=== PATIENT | female | born 1985 | race Caucasian/White ===

== ENCOUNTER 2016-09-30 12:14 | Emergency (ER) ==
--- NOTE | 2016-09-30 12:54 | PROVIDER DOCUMENTATION ---
HPI-General Adult - General Chief Complaint: Female Stated Complaint: 7 WEEKS PREG/BLEEDING Time Seen by Provider: 09/30/16 12:20 Source: patient Allergies/Adverse Reactions: Patient Allergies Allergy/AdvReac Type Severity Reaction Status Date / Time promethazine HCl * Allergy VOMITING Verified 09/30/16 12:28 [From Phenergan] meperidine HCl * AdvReac Unknown Verified 09/30/16 12:28 [From Demerol] - History of Present Illness -Gen Adult Nature of Presenting Problems: Pt. is 31 yof that presents with c/o vaginal bleeding and cramping that began this morning. Pt. reports she is 7 weeks and had an OB appointment yesterday where they did a vaginal exam. Pt. reports she called her OB office and they told her to come to the ED for an US. Pt. is G1, P0. Location of Pain/Injury: reports: abdomen. denies: head, face, mouth, neck, chest, upper extremity, hand(s), back, pelvis, genitalia, lower extremity, feet , upper body, lower body, generalized Pain Radiation: reports: no radiation Quality of Pain: reports: cramping. denies: aching, burning, dull, fullness, indigestion, pressure, sharp, stabbing, tearing, throbbing, tightness Severity: reports: mild. denies: moderate, severe Onset/Duration: reports: abrupt, this morning Timing: reports: still present. denies: improving, gone now, resolved prior to arrival, intermittent, constant, changing over time, getting worse Context/Activities at Onset: reports: none. denies: recent emotional stress, recent physical stress, recent trauma history, possible bad food, cold exposure , out of country travel Modifying Factors: improves with: nothing Associated Symptoms: reports: other (Vaginal bleeding). denies: anxiety, arm pain, back/neck pain, chest pain, constipation, cough, diaphoresis, diarrhea, dizziness, EENT symptoms, fatigue, fever/chills, genitourinary problems, headaches, heartburn, joint pain, loss of appetite, malaise, muscle aches, sinus congestion/drainage, nausea, rash, seizure, shortness of breath, sensory/ motor loss, pain with inspiration, swelling/mass in abdomen, syncope, vomiting, weakness, trouble walking Similar Symptoms Previously?: No Recently seen or treated by another doctor?: Yes Review of Systems - Adult - REVIEW OF SYSTEMS - ADULT Constitutional: reports: see HPI. denies: chills, fever, fatique Eyes: reports: see HPI. denies: discharge, blurred vision, double vision, eye pain Ears, Nose, Mouth & Throat: reports: see HPI. denies: ear discharge, ear pain, nose pain, loose teeth, mouth/dental pain, throat pain Cardiovascular: reports: see HPI. denies: chest pain, heart murmur, orthopnea, palpitations, syncope Respiratory: reports: see HPI. denies: chronic cough, cough, dyspnea on exertion, pleurisy, shortness of breath, wheezing Gastrointestinal: reports: see HPI, abdominal pain. denies: hematemesis, difficulty swallowing, frequent heartburn, nausea, vomiting Genitourinary: reports: see HPI. denies: dysuria, discharge, hematuria, incontinence, urgency Musculoskeletal: reports: see HPI. denies: bone pain, back pain, joint pain, muscle aches, neck pain Integumentary: reports: see HPI. denies: hives, hair loss, itching, rash, skin thickening Neurological: reports: see HPI. denies: ataxia, dizziness/vertigo, headache/ migraines, numbness, paresthesia, seizure, tremors Psychiatric: reports: see HPI. denies: anxiety, depression, emotional problems , insomnia, panic attacks, suicidal thoughts Past History - Adult - PAST MEDICAL HISTORY-ADULT Review of Records: reports: Old Records Reviewed, Nursing Assessment Review, Medications Reviewed, Social history reviewed & non-contributory. Physical Exam-General - PHYSICAL EXAM-ADULT Initial Vital Signs Reviewed: Yes - CONSTITUTIONAL General Appearance: alert, mild distress, thin. negative: anxious, lethargic, slow to respond, obtunded, combative - EYES Eyes: PERRL/EOMI, pink conjunctivae. negative: conjuctival exudate, photophobia , subconjunctival hemorrhage - HEAD, EARS, NOSE, MOUTH & THROAT HENMT: normocephalic/atraumatic, moist mucous membranes. negative: angioedema, frontal tenderness, maxillary tenderness - NECK Neck: non-tender, full range of motion, supple, normal inspection. negative: lymphadenopathy, trachial deviation, thyromegaly - RESPIRATORY Respiratory: lungs clear, normal breath sounds. negative: crackles, rales, rhonchi, stridor, wheezing - CARDIOVASCULAR Cardiovascular: normal peripheral pulses, regular rate, rhythm, no edema, no JVD , no murmur. negative: extra beats, friction rub, irregularly irregular - CHEST (BREASTS) Chest/Breast: deferred - GASTROINTESTINAL (ABDOMEN) Abdominal Exam: normal bowel sounds, non tender, soft. negative: distended, guarding, rigid, rebound, tenderness, hernia, mass - GENITOURINARY Female Genitalia/Pelvic Exam: deferred Rectal Exam: deferred Hemoccult Exam: deferred - LYMPHATIC Lymphatic: no adenopathy. negative: axilla node tender, cervical node tenderness - MUSCULOSKELETAL Back Exam: normal inspection, no CVA tenderness, no vertebral tenderness. negative: decreased range of motion, muscle spasm, vertebral tenderness Extremity: normal range of motion, non-tender, normal gait, normal inspection. negative: deformity, erythema, inflammation, swelling, tenderness Peripheral Pulses: radial (R): 2+, radial (L): 2+ - SKIN Integumentary: normal color, normal turgor, warm/dry. negative: cyanosis, diaphoresis, ecchymosis, erythema, jaundice, mottled, pallor, petechiae, purpura , rash, swelling, tenderness - NEUROLOGIC Neurologic: grossly normal, no motor/sensory deficits. negative: aphasia, facial droop, focal weakness, motor weakness, sensory deficit - PSYCHIATRIC Psych/Mental Status: normal mood/affect, normal thought content, normal thought process, oriented x 3. negative: anxious, paranoid, tearful Progress - PLAN OF CARE/RESULTS Progress/Plan/Lab Results: Discussed results and plan of care with patient. Patient agrees with plan and verbalizes understanding. Vital Signs Temp Pulse Resp BP Pulse Ox 09/30/16 12:25 97.8 F 94 H 18 130/61 100 promethazine HCl * [From Phenergan] Allergy (Verified 09/30/16 12:28) VOMITING meperidine HCl * [From Demerol] Adverse Reaction (Verified 09/30/16 12:28) Unknown Laboratory 09/30/16 09/30/16 12:33 12:33 Ser , Semi-Qnt 2221.0 ABO/Rh A POSITIVE RhIG Candidate? NO Orders Category Date Time Status US OBS COMPLETE < 14 WKS [US] Stat Exams 09/30/16 13:20 Taken QUANT TEST Stat Lab 09/30/16 12:33 Completed RHOGAM WORKUP [BBK] Stat Lab 09/30/16 12:33 Completed Laboratory Tests 09/30/16 09/30/16 12:33 12:33 Ser , Semi-Qnt 2221.0 ABO/Rh A POSITIVE RhIG Candidate? NO - ULTRASOUND (By Radiology) 1 US Study: Transvaginal (Possible tiny intrauterine gestational sac, 6.7mm, no pole, recommend f/u serial hcg and u/s. ([place])) US Results: see note Departure - Departure Time of Disposition Order: 14:49 DIAGNOSIS: Vaginal bleeding before 22 weeks gestation Disposition: HOME 01 Certified Medical Emergency: Emergent Condition: Stable Additional Instructions: Follow up with primary care physician Follow up with OB physician Return to ED on Monday for repeat Quant hcg Return to ED for any concerns or worsening of symptoms ED Follow Up Instructions: You have been treated by a care provider in the Emergency Department. These instructions are being provided to you so you can have an understanding of how to care for yourself upon discharge. Upon discharge from the Emergency Department, you are responsible for making arrangements for follow-up care by a physician of your choice. Take all prescribed medications as directed. Return to the Emergency Department immediately for any new or worsening symptoms. You may call the Physician Referral phone number at [phone] to obtain a list of Physicians who are taking new patients. Attestation - Physician/ Mid-level Attestation Patient care was provided by Mid-level provider (CAVING GUIDE/PA):: Yes Mid-level provider:: Oren Haro Mid-level documentation review:: The Mid-level provider documentation, treatment plan and medical decision making was reviewed by the physician who agrees with all treatment and medical decision making by the [facility]. The physician spent face to face time with patient:: Yes
--- NOTE | 2016-09-30 14:54 | Diag Imaging Result Document ---
PROCEDURE NAME: US OBS COMPLETE < 14 WKS - 09/30/2016 OBSTETRICAL ULTRASOUND, LESS THAN 14 WEEKS: INDICATION: Cramping and bleeding. . FINDINGS: A small rounded fluid collection is noted within the uterus which measures 6.7 mm. This may represent a very early gestational sac. No pole is identified. Follow up HCG values and ultrasound is recommended. The right ovary is not visualized. There is a 1.2 cm cyst in the left ovary. No adnexal masses or free fluid within the cul-de-sac is appreciated. The uterus measures 7.4 x 3.6 x 3.7 cm. IMPRESSION: Possible tiny gestational sac within the uterus measuring 6.7 mm. Serial HCG values and follow-up ultrasound is recommended. [facility]
[2016-09-30 15:55] VITALS: BP 131/72
== END 2016-09-30 15:54 | disposition home or self-care (01) ==
LOC: P.ED 12:14
DX: O46.91 Antepartum hemorrhage, unspecified, first trimester (principal); Z3A.01 Less than 8 weeks gestation of pregnancy; O26.891 Other specified pregnancy related conditions, first trimester; R10.9 Unspecified abdominal pain
CPT/HCPCS: 36415; 76801; 84702; 86900; 86901

== ENCOUNTER 2018-09-29 19:47 | Observation (INO) ==
[2018-09-29] MEDS ORDERED: NS 1,000 ML IV ONE ×2 (20:11→22:59)
[2018-09-29] MEDS ORDERED: NS 1,000 ML ONE (20:12)
[2018-09-29] MEDS ORDERED: ZOFRAN IV ONE ×2 (20:36→22:59)
--- NOTE | 2018-09-29 20:59 | Diag Imaging Result Doc PS360 ---
EXAM: CHEST-PORTABLE 09/29/2018 HISTORY: poss sepsis TECHNIQUE: AP portable chest at 2051 COMMENT: There is no evidence of acute cardiac or pulmonary disease. No previous studies are available for comparison. IMPRESSION: No acute disease. Electronically signed by Dimitris Vann 09/29/2018 8:56 PM
[2018-09-29 21:08] LABS: ALB/GLOB RATIO 1.5; ALBUMIN 5.1 g/dL (3.5-5.0); CALCIUM 10.2 mg/dL (8.8-10.2); CREATININE 1.1 mg/dL (0.5-0.9); POTASSIUM 3.7 mmol/L (3.5-5.1); TOTAL BILIRUBIN 0.85 mg/dL (0.20-1.00); TOTAL PROTEIN 8.4 g/dL (6.3-8.3)
[2018-09-29 21:13] LABS: BASO# 0.02 X1000 (0.0-0.2); BASO% 0.1 % (0.0-0.8); EOS# 0.09 X1000 (0.0-0.7); EOS% 0.5 % (0.0-10.0); HEMATOCRIT 50.9 % (37.0-47.0); HEMOGLOBIN 16.7 g/dL (12.0-16.0); IMM GRAN# 0.05 X1000 (0.0-0.04); IMM GRAN% 0.3 % (0.0-0.5); LYMPH# 0.74 X1000 (1.2-3.4); LYMPH% 3.7 % (20.5-51.1); MCH 26.4 PG (27-31); MCHC 32.8 g/dL (33-37); MCV 80.5 FL (81-99); MONO# 1.02 X1000 (0.11-0.59); MONO% 5.1 % (1.7-9.3); MPV 10.1 FL (7.4-10.4); NEUT# 17.99 X1000 (1.4-6.5); NEUT% 90.3 % (42.2-75.2); PLT 335 X1000 (130-400); RBC 6.32 XMIL (4.2-5.4); RDW 15.2 % (11.5-14.5); WBC 19.91 X1000 (4.8-10.8)
[2018-09-29] MEDS ORDERED: ZOSYN 3.375 GM in NS 50 ML IV ONE (21:44)
[2018-09-29 23:02] LABS: URINE SOURCE CLEAN CATCH
[2018-09-29] MEDS ORDERED: TORADOL IV ONE (23:04)
[2018-09-29 23:05] LABS: BILIRUBIN URINE NEGATIVE (NEGATIVE); BLOOD URINE MODERATE (NEGATIVE); COLOR YELLOW; GLUCOSE URINE NEGATIVE (NEGATIVE); KETONE URINE NEGATIVE (NEGATIVE); LEUKOCYTES URINE NEGATIVE (NEGATIVE); NITRITE URINE NEGATIVE (NEGATIVE); PH URINE 6.5; PROTEIN URINE 50 mg/dL (NEGATIVE); SP GRAVITY URINE > 1.050; TURBIDITY URINE CLEAR (CLEAR); UR EPITHELIAL CELLS <10 /HPF (<10); URINE BACTERIA NEGATIVE /HPF; URINE RBC TNTC /HPF (<10); URINE WBC <10 /HPF (<10); UROBILINOGEN URINE NORMAL (NORMAL)
[2018-09-30] MEDS ORDERED: ATIVAN PO ONE (01:07)
[2018-09-30] MEDS ORDERED: NS 1,000 ML IV ONE (02:16)
[2018-09-30] MEDS ORDERED: ZOFRAN IV PRN (02:17)
[2018-09-30] MEDS ORDERED: TYLENOL PO PRN (02:17)
--- NOTE | 2018-09-30 02:22 | PROVIDER DOCUMENTATION ---
This chart was entered by Trish Pedraza Scribe, acting as scribe for Angelita Mccallum DO. HPI-General Adult - General Chief Complaint: Possible Sepsis-D Stated Complaint: N,V,HIGH WBC Time Seen by Provider: 09/29/18 20:09 Source: patient Allergies/Adverse Reactions: Patient Allergies Allergy/AdvReac Type Severity Reaction Status Date / Time promethazine HCl * Allergy VOMITING Verified 09/30/16 12:28 [From Phenergan] meperidine HCl * AdvReac Unknown Verified 09/30/16 12:28 [From Demerol] - History of Present Illness -Gen Adult Nature of Presenting Problems: pt is a 33 yr old female presenting with complaint of nausea, vomiting and diarrhea onset 1600 today, pt went to urgent care and labs showed 22K white count, urgent care referred her here due to blood count. Location of Pain/Injury: reports: none Pain Radiation: reports: no radiation Quality of Pain: reports: none Severity: reports: moderate Onset/Duration: reports: this afternoon (1600) Timing: reports: still present Context/Activities at Onset: reports: light activity Modifying Factors: improves with: nothing Associated Symptoms: reports: diarrhea, nausea, vomiting. denies: fatigue, fever/chills, weakness Similar Symptoms Previously?: No Recently seen or treated by another doctor?: Yes (seen at urgent care just prior to here.) Review of Systems - Adult - REVIEW OF SYSTEMS - ADULT Constitutional: denies: chills, fever Eyes: denies: discharge, redness Ears, Nose, Mouth & Throat: denies: ear pain, sinus problem, throat pain Cardiovascular: denies: chest pain, palpitations, syncope Respiratory: denies: cough, dyspnea on exertion, shortness of breath Gastrointestinal: reports: diarrhea, nausea, vomiting. denies: abdominal pain Genitourinary: denies: dysuria, frequency, flank pain Musculoskeletal: denies: back pain, muscle aches, muscle weakness, neck pain Integumentary: reports: no symptoms reported Neurological: denies: dizziness/vertigo, headache/migraines Psychiatric: reports: no symptoms reported Endocrine: reports: no symptoms reported Hematologic/Lymphatic: reports: no symptoms reported Allergic/Immunologic: reports: no symptoms reported All Other Systems: Reviewed and Negative Past History - Adult - PAST MEDICAL HISTORY-ADULT Review of Records: reports: Old Records Reviewed, Nursing Assessment Review, Medications Reviewed, Social history reviewed & non-contributory. Major Childhood Illnesses: reports: denies history Cardiovascular: reports: denies history Respiratory: reports: denies history Gastrointestinal: reports: other (familial polyposis) Obstetrical/Gynecological: reports: denies history Genitourinary: reports: denies history Musculoskeletal: reports: denies history Neurological: reports: denies history Endocrine/Immune: reports: denies history Other Conditions: reports: denies history - PRIOR SURGERIES/PROCEDURES Surgical/Procedure History: reports: , bowel surgery (resection) - IMMUNIZATION STATUS Childhood Immunizations: See Nurse Assessment Flu Vaccine: See Nurse Assessment - FAMILY HISTORY Family History: reviewed, not pertinent - SOCIAL HISTORY Living Situation: family Physical Exam-General - PHYSICAL EXAM-ADULT Initial Vital Signs Reviewed: Yes - CONSTITUTIONAL General Appearance: appears well, alert, no apparent distress - EYES Eyes: PERRL/EOMI - HEAD, EARS, NOSE, MOUTH & THROAT HENMT: normocephalic/atraumatic, moist mucous membranes, normal ENT inspection - NECK Neck: non-tender, full range of motion, supple, normal inspection - RESPIRATORY Respiratory: chest non-tender, lungs clear, normal breath sounds, no pleuratic chest pain, no respiratory distress, no accessory muscle use - CARDIOVASCULAR Cardiovascular: normal peripheral pulses, regular rate, rhythm, no edema - GASTROINTESTINAL (ABDOMEN) Abdominal Exam: normal bowel sounds, non tender, soft, other (well healing abdominal scar, no drainage, no erythema) - LYMPHATIC Lymphatic: no adenopathy - MUSCULOSKELETAL Back Exam: normal inspection, no CVA tenderness, no vertebral tenderness Extremity: normal range of motion, non-tender, normal gait, normal inspection - SKIN Integumentary: normal color, normal turgor, warm/dry - NEUROLOGIC Neurologic: grossly normal, no motor/sensory deficits - PSYCHIATRIC Psych/Mental Status: normal mood/affect, normal thought content, normal thought process, oriented x 3 Progress - PLAN OF CARE/RESULTS Progress/Plan/Lab Results: Orders Category Date Time Status CHEST-PORTABLE [RAD] Stat Exams 09/29/18 20:10 Ordered BLOOD CULTURE [BLDCUL] Stat Lab 09/29/18 20:34 Ordered CBC WITH ELECTRONIC DIFF [HEME] Stat Lab 09/29/18 20:34 Ordered COMPREHENSIVE METABOLIC PANEL [CHEM] Stat Lab 09/29/18 20:34 Ordered LACTATE, PLASMA [CHEM] Stat Lab 09/29/18 20:34 Ordered LIPASE [CHEM] Stat Lab 09/29/18 20:34 Ordered 0.9% Sodium Chloride Inj [Ns] 1,000 ml Med 09/29/18 20:12 Discontinued .ROUTE As Directed 0.9% Sodium Chloride Inj [Ns] 1,000 ml Med 09/29/18 20:11 Active IV 999 mls/hr BP was initially low but improved with IV fluids. She remained non-toxic appearing while here. She remained free of abdominal tenderness. She had back pain diffusely but no tenderness on exam. She did develop tingling in her legs but had normal strength, sensation and reflexes. CT a/p showed possible mesenteric panniculitis, but no other acute findings. She has had some ttp over her vertical scar since her Sept surgery. Her lactate was 3.2 initially and 2.8 on repeat. She was empirically given Zosyn IV. No source of infection identified. She was admitted to the hospitalist service for further eval and tx. She denies history of IVDA to suggest epidural abscess or discitis. Result Diagrams: 09/29/18 20:22 09/29/18 20:22 Departure - Departure Date of Disposition Decision: 09/30/18 Time of Disposition Decision: 01:02 DIAGNOSIS: Vomiting and diarrhea, Mesenteric panniculitis Sepsis Qualifiers: Sepsis type: sepsis due to unspecified organism Qualified Code(s): A41.9 - Sepsis, unspecified organism Disposition: ADMITTED INPATIENT 09 Certified Medical Emergency: Emergent Condition: Fair Referrals and Follow-Ups: Raghu Bautista CRNP [Primary Care Provider] - - Critical Care Note This patient required my direct & personal management of CC.: No Attestation - Physician/ RAMY Attestation The physician spent face to face time with patient:: Yes Advanced Practice Provider documentation review:: Supervising physician onsite and consulted in the evaluation and care of this patient. The physician did have a face to face encounter with the patient. This chart was documented by the indicated scribe, (Trish Pedraza, [place]) and accurately reflects the services I performed and decisions made by me, Angelita Mccallum DO, as attested by the provider's signature.
[2018-09-30] MEDS: ZOSYN 3.375 GM in NS 50 ML IV SCH ×4 (05:01→23:09)
--- NOTE | 2018-09-30 05:49 | HISTORY AND PHYSICAL ---
PRIMARY CARE PROVIDER: MIC Xavier. CHIEF COMPLAINT: Nausea, vomiting, diarrhea. HISTORY OF PRESENT ILLNESS: Ms. Cardona is a 33-year-old female with a history of familial polyposis status post resection of her large intestine, who comes in today after having nausea, vomiting and diarrhea. Started this afternoon around 16:00. She denied any fever, chills, fatigue or weakness. She did have cyclic cramping abdominal pain that was worse before vomiting and slightly better afterwards. She was seen at urgent care prior to arrival here. They checked a white blood cell count, found it to be greater than 20,000 and sent her to the emergency room. Laboratory data was completed here which again showed a white blood cell count around 20,000. Her plasma lactate was elevated at 3.2. Fluid resuscitation was started in the emergency room. A CT of her abdomen was obtained which showed mesenteric adenitis or panniculitis. She was given a dose of Zosyn. She will be admitted to the medical floor for further evaluation and treatment. PAST MEDICAL HISTORY: See HPI. PREVIOUS SURGICAL HISTORY: 1. Tonsillectomy. 2. Appendectomy. 3. Colon resection. 4. . FAMILY HISTORY: Positive for familial polyposis. SOCIAL HISTORY: Lives with her . Works in [employer]. Drinks 5 beers 3 times a week. Smokes 1/2 pack of cigarettes to a pack of cigarettes a day. Denies illicit drug use or abuse. ALLERGIES: Meperidine and promethazine. HOME MEDICATIONS: No home medications. REVIEW OF SYSTEMS: Fourteen point review of systems conducted with the patient. She has complaint of tingling or numbness in bilateral lower extremities. She states that it started in her calves and feet. It appears to be somewhat ascending and it is now in her right hand as well. Denies pain in these extremities. States that she does feel that her right hand may be slightly weak. Denies weakness in her lower extremities. Denies headache, visual change , hematemesis, hematochezia, melena. Other pertinent positives are listed above in the HPI. All other systems reviewed and found to be negative. PHYSICAL EXAMINATION: VITAL SIGNS: Temperature 97.9, pulse 98, respirations 18, blood pressure 123/75 , oxygen saturation 98% on room air. GENERAL: Pleasant 33-year-old female lying in the ER stretcher, answers all questions appropriately, is alert and oriented times 3. Mother at bedside very attentive. HEENT: Head is atraumatic, normocephalic. Pupils equal, round, reactive to light. Extraocular eye movement is intact. Sclerae are anicteric. Conjunctiva is pink. Oral mucosa is dry. NECK: Supple. No JVD. No thyromegaly. Trachea is midline. No cervical lymphadenopathy. CARDIAC: S1, S2 appreciated. No murmurs, gallops, or rubs. LUNGS: Clear to auscultation bilaterally. No rhonchi, wheezes, rales. Symmetric rise and fall with respirations. ABDOMEN: Soft, nondistended. Diffusely tender to palpation. Bowel sounds present all 4 quadrants, hyperactive. No pulsatile mass. No organomegaly. EXTREMITIES: No clubbing, cyanosis, or edema. Two-plus pedal pulses bilaterally. MUSCULOSKELETAL: All 4 extremities range of motion within normal limits. 5/5 upper and lower extremity strength which is equal bilaterally. Patient deep tendon reflexes are intact in bilateral lower extremities. NEUROLOGICAL: Alert and oriented times 3. Cranial nerves II through XII grossly intact. Bilateral lower extremities sensory is intact despite the patient having a feeling of numbness. DIAGNOSTIC DATA: CT of the abdomen showed mesenteric adenitis or panniculitis. LABORATORY DATA: WBC is 19.91. Hemoglobin 16.7. Hematocrit 50.9. Platelet count 335. Sodium 141. Potassium 3.7. Chloride 100. Carbon dioxide 23. BUN 16. Creatinine 1.1. Glucose 160. AST 33. ALT 103. Plasma lactate on arrival 3.2, at recheck it was 2.8. Urine : Moderate blood, too numerous to count RBCs. ASSESSMENT AND PLAN: 1. Panniculitis. Zosyn was started in the emergency room. We will continue Zosyn 3.375 IV q.6 hours. Zofran as needed for nausea. 2. Nausea, vomiting, diarrhea, likely secondary to number 1. Cannot exclude a viral syndrome. We will add neuro check q.1 hour as the patient is having ascending numbness somewhat worrisome for Guillain-[place]. Continue to monitor. 3. Familial polyposis status post colon resection. Aware. 4. Tobacco and alcohol use. Smoking cessation as well as alcohol cessation was gone over with the patient. She denies wanting to quit either at this time. 5. Leukocytosis secondary to number 1. 6. Acute kidney injury secondary to fluid volume depletion. Two liters of normal saline was given. We will continue normal saline at 125 mL an hour. Recheck laboratory data in a.m. Further recommendations per patient clinical course. Dictated by MIC Marie for Francisco Song MD This patient was interviewed and examined in concert with MIC. A plan was discussed and is reflected in this dictation. Francisco Song MD cc: MIC Marie MD Eric Crampsey, CRNP [facility]
[2018-09-30 07:09] LABS: EOS# 0.01 X1000 (0.0-0.7); EOS% 0.1 % (0.0-10.0); HEMATOCRIT 39.7 % (37.0-47.0); LYMPH# 0.38 X1000 (1.2-3.4); LYMPH% 4.8 % (20.5-51.1); MCH 26.9 PG (27-31); MCHC 32.7 g/dL (33-37); MONO# 0.25 X1000 (0.11-0.59); MONO% 3.2 % (1.7-9.3); MPV 10.2 FL (7.4-10.4); NEUT# 7.29 X1000 (1.4-6.5); NEUT% 91.9 % (42.2-75.2); PLT 223 X1000 (130-400); RBC 4.84 XMIL (4.2-5.4); RDW 15.2 % (11.5-14.5); WBC 7.93 X1000 (4.8-10.8)
[2018-09-30 07:22] LABS: BUN 13 mg/dL (8-22); CALCIUM 7.8 mg/dL (8.8-10.2); CREATININE 0.7 mg/dL (0.5-0.9); ESTIMATED GFR > 60; GLUCOSE 100 mg/dL (70-104); TCO2 20 mmol/L (25-35)
--- NOTE | 2018-09-30 08:16 | Diag Imaging Result Doc PS360 ---
EXAM: CT ABD/PELVIS W/IV CONT ONLY 09/29/2018 HISTORY: abd pain, nvd. TECHNIQUE: This exam was performed using automated exposure control, adjustment of mA or kV according to patient size, and/or use of iterative reconstruction technique. COMMENT: The current examination is compared with the previous study of 06/26/2013. There is no evidence of acute disease in the visualized portion of the chest. There is a nodular mass arising from the medial lobe of the left adrenal gland measuring almost 2 cm in diameter. This was not present at the time the previous study. The spleen and right adrenal gland are unremarkable. The kidneys, pancreas, and liver are stable in appearance. There are no gallstones. There is some fluid in the small bowel without evidence of mucosal thickening. There is fluid in a pouch in the right lower quadrant as there was at the time the previous study. There has apparently been total colectomy with anastomosis of the small bowel to the rectum due to familial adenomatous polyposis. There is no evidence of significant adenopathy. Some mesenteric nodes are demonstrated particularly in the pelvis and the ileocolic region the largest of which is less than a centimeter in diameter. This was also present at the time the previous examination. Pelvis: There is some infiltration of the mesenteric fat in the anterior midline which was not present at the time the previous study. There is a small fluid collection which is well circumscribed on image 112 measuring 12 mm in diameter. This was not identifiable on the previous study. It appears to have a connection to the neorectum and adjacent small bowel loops and may represent a small fistula. The uterus is somewhat inhomogeneous in density and there may be multiple myometrial masses. This is more apparent than on the previous study. Pelvic ultrasonography may be desirable for further evaluation. The regional skeleton is stable in appearance. IMPRESSION: 1. New left adrenal nodule. This may represent an adenoma but was not present on 06/26/2013. The ultrasound of the kidneys dated 08/08/2018 was reportedly performed for evaluation of an adrenal abnormality, which was not demonstrated at that time. It is possible that this has been previously demonstrated on a examination which is not available for comparison at this time. Clinical correlation is recommended. 2. 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 Edema/inflammation of the pelvic mesenteric fat of uncertain etiology. 3. Possible myometrial masses. Advise further evaluation with ultrasound. Electronically signed by Dimitris Vann 09/30/2018 8:13 AM
[2018-09-30 08:19] LABS: CHLORIDE 108 mmol/L (98-107); POTASSIUM 3.8 mmol/L (3.5-5.1); SODIUM 141 mmol/L (136-145)
[2018-09-30 08:23] LABS: AGAP 13; COSMO 281
[2018-09-30] MEDS ORDERED: 1/2 NS 1,000 ML IV SCH (14:45)
[2018-09-30] MEDS ORDERED: SODIUM CHLORIDE 0.9% INJ SCH (15:00)
[2018-09-30] MEDS ORDERED: PROTONIX IV SCH (15:00)
--- NOTE | 2018-09-30 15:24 | PROGRESS NOTE ---
DATE: 09/30/2018 SUBJECTIVE: As per the patient she is feeling better, she has not been vomiting since yesterday p.m., she wants her diet to be advanced so I will advance the diet to a GI soft diet, low fat. She has a past surgical history of colon resection due to familial polyposis, it looks like multiple members of the family have this condition. She is still having some diarrhea, she received IV fluid in the emergency department. I will continue with IV fluid as well, her kidney function improved and is basically normal, creatinine decreased from 1.1 to 0.7. She has mild elevation of the LFTs and probably this is related to severe dehydration. WBC decreased from 19.9 to 7.9. This could be a combination of infection and/or reactive problem. CRP is 125, within normal limits. OBJECTIVE: Vital Signs: Temperature 97.4 degrees, pulse 103, respiratory rate 16, blood pressure 99/61, oxygen saturation 97 on room air. HEENT: Head normocephalic. No trauma. PERRLA. Neck: Supple. No JVD. No masses. Central trachea. Chest: Clear to auscultation. No wheezing. No rales. Abdomen: Soft. Mild to moderate tenderness to palpation at the level of the lower abdomen. Positive bowel sounds. No signs of peritoneal irritation. No rebound. Extremities: No edema, no clubbing, no cyanosis. Neurological: The patient is alert and oriented x3. Apparently she presented with some numbness sensation at the level of the lower extremities but this is gone. LABORATORY: WBC 7.9, hemoglobin 13, hematocrit 39.7, platelets 223,000, sodium 141, potassium 3.8, chloride 108, bicarbonate 20, BUN 13, creatinine 0.7, glucose 100, calcium 7.8, CRP 125, TSH 124. ASSESSMENT AND PLAN: 1. Panniculitis, Zosyn has been already started in the emergency department and we will continue with the same treatment, on top of that I will continue with IV fluids and I will add pantoprazole to her medications. 2. Nausea and vomiting, resolved. Apparently the last time she vomited was yesterday at 10 p.m., she has been tolerating p.o. just liquids but she is requesting to advance the diet so I will advance the diet to GI soft, low fat. 3. Diarrhea, she is still having some episodes of diarrhea, apparently she had 6 today not large amount but she has been always having loose stools but no watery stools due to her colectomy. 4. 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 5. Familial polyposis status post colon resection aware. 6. Tobacco abuse. This patient has been highly advised against tobacco use. I will continue with daily cessation education. 7. Alcohol use. Apparently this patient drinks multiple times per week, I will advise the patient to stop drinking. 8. Leukocytosis likely secondary to #1, resolved. 9. Acute kidney injury likely due to fluid volume depletion. She received already 3 L of fluid in the emergency department. I will continue with half NS at 75 mL/hour. Kidney function resolved. 10. We did a CT scan yesterday that showed a new left adrenal note but probably that was demonstrated before, this has not been probably evaluated but I will talk to the patient because she needs to follow this problem up with her primary care doctor. 11. 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 Apparently this patient recently had an upper endoscopy done, apparently they found some polyps with some precancer lesions, she is following Dr. Callahan as an outpatient closely. cc: Clemente Leyva MD
[2018-09-30] MEDS: NORCO-5 PO PRN (17:41)
[2018-09-30] MEDS ORDERED: MELATONIN PO SCH (21:00)
[2018-10-01] MEDS: NORCO-5 PO PRN (04:51)
[2018-10-01] MEDS: ZOSYN 3.375 GM in NS 50 ML IV SCH (06:28)
[2018-10-01 06:48] LABS: BASO# 0.02 X1000 (0.0-0.2); BASO% 0.6 % (0.0-0.8); EOS# 0.15 X1000 (0.0-0.7); EOS% 4.5 % (0.0-10.0); HEMATOCRIT 37.9 % (37.0-47.0); HEMOGLOBIN 12.5 g/dL (12.0-16.0); LYMPH% 23.7 % (20.5-51.1); MCH 27.3 PG (27-31); MCV 82.8 FL (81-99); MONO# 0.35 X1000 (0.11-0.59); MONO% 10.4 % (1.7-9.3); MPV 10.1 FL (7.4-10.4); NEUT# 2.05 X1000 (1.4-6.5); NEUT% 60.8 % (42.2-75.2); PLT 194 X1000 (130-400); RBC 4.58 XMIL (4.2-5.4); RDW 15.1 % (11.5-14.5); WBC 3.37 X1000 (4.8-10.8)
[2018-10-01 07:15] LABS: AGAP 11; ALB/GLOB RATIO 1.4; ALBUMIN 3.6 g/dL (3.5-5.0); ALKALINE PHOSPHATASE 72 U/L (32-104); BUN 7 mg/dL (8-22); CALCIUM 8.7 mg/dL (8.8-10.2); CHLORIDE 108 mmol/L (98-107); COSMO 279; CREATININE 0.7 mg/dL (0.5-0.9); ESTIMATED GFR > 60; GLUCOSE 96 mg/dL (70-104); GOT 67 U/L (10-30); GPT 96 U/L (10-36); POTASSIUM 3.8 mmol/L (3.5-5.1); SODIUM 141 mmol/L (136-145); TCO2 22 mmol/L (25-35); TOTAL BILIRUBIN 0.59 mg/dL (0.20-1.00); TOTAL PROTEIN 6.2 g/dL (6.3-8.3)
[2018-10-01 07:25] VITALS: BP 106/58
--- NOTE | 2018-10-02 06:05 | DISCHARGE SUMMARY ---
ADMISSION DATE: 09/29/2018 DISCHARGE DATE: 10/01/2018 DISCHARGE DIAGNOSES: 1. Samuels colitis. 2. Nausea and vomiting, resolved. 3. Diarrhea which is acute on chronic. 4. Numbness sensation at the level of the lower extremities, resolved. 5. Familial polyposis status post colon resection. 6. Tobacco abuse. 7. Alcohol use. 8. Leukocytosis, resolved. 9. Acute kidney injury, resolved. 10. Left adrenal nodule. 11. Possible small fistula adjacent to the ileorectal anastomosis. 12. Possible myometrial masses, per CT scan report. HOSPITAL COURSE: A 33-year-old female with a past medical history of familial polyposis status post resection of her large intestine, came and was admitted on 2017 due to nausea, vomiting and diarrhea. Apparently, this started this same date of admission around 04:00 in the afternoon. She denies any fever, chills, fatigue or weakness. She did have some cyclic cramping abdominal pain that was somewhat worse before vomiting, and slightly better afterwards. She was seen at the urgent care prior to arrival to this hospital. White blood cell was found to be greater than 20,000, and she was sent to the emergency room. Laboratory data was completed here, and again showed a white blood cell count of around 19.9, lactate level elevated at 3.2. She receive fluid resuscitation at the emergency department. CT scan of the abdomen showed mesenteric adenitis or panniculitis. She was given a dose of antibiotics and we continued with the same management. After getting IV fluids and initial treatment, this patient was feeling better. She was not complaining of nausea or vomiting, and she was tolerating a liquid diet. Her white blood cell decreased to 7.9, and the kidney injury resolved completely. The lactate level also was 1.1. She also came in with some elevated LFTs. AST 133, ALT 103, alkaline phosphatase 119, and they seem to be a little bit better today. Like I said, she is not complaining of any symptoms today. Vital signs are stable as well as the laboratory. She has been asking since yesterday afternoon to go home because she was feeling better, but given her current presentation we have decided to at least keep her during the night with IV fluids because she was still having episodes of diarrhea that is actually more liquid than normal. Also, we advanced the diet to see if she is able to tolerate that. I re-evaluated this patient today again, and she was feeling better. She was tolerating p.o. She was not having pain, and her bowel movements were better. Also, we discussed about her CT scan results about the adrenal node which she states that is not new, and she has been taking care of this as an outpatient as well. I talked to her about the small fistula adjacent to the ileorectal anastomosis per CT scan. She will follow that up with Dr. Callahan which is her certified professional controller. For her possible myometrial masses, she will get her [employer] to evaluate that with an ultrasound. Her mother is at the bedside, and they seem to understand all these instructions. She will be discharged with antibiotics. As per the patient, every time she takes antibiotics, she has a really bad yeast infection so also we will prescribe some Diflucan to prevent that. At the moment of discharge, this patient was in stable medical condition tolerating p.o. and ambulating. Her diarrhea was basically back to her normal chronic bowel movements. She is not complaining of chest pain, shortness of breath only mild discomfort to palpation at the level of the right lower quadrant. OBJECTIVE: Vital Signs: Temperature 98.5 degrees, pulse 52, respiratory rate 14, blood pressure 106/58, oxygen saturation 99 on room air. HEENT: Head normocephalic. No trauma. PERRLA. Neck: Supple. No JVD. No masses. Central trachea. Chest: Clear to auscultation. No wheezing. No rales. Abdomen: Soft. Mild tenderness to palpation at the level of the right lower quadrant. She does have some abdominal scars from previous surgeries. Positive bowel sounds. Extremities: No edema. No clubbing. No cyanosis. Neurological: The patient is alert and oriented x3. No focal deficits. LABORATORY: WBC 3.3, hemoglobin 12.5, hematocrit 37.9, and platelets 194,000. Sodium 141, potassium 3.8, chloride 108, bicarbonate 22, BUN 7, creatinine 0.7, glucose 96, calcium 8.7 AST 67, ALT 96, alkaline phosphatase 72 and albumin 3.6. ASSESSMENT AND PLAN: It looks like this patient has been drinking at least 3 times a day and also smoking. This patient has been highly advised against alcohol and tobacco use. DISCHARGE MEDICATIONS: 1. Omeprazole 20 mg p.o. daily. 2. Diflucan 150 p.o. once at the beginning of the antibiotics, and can be repeated if a yeast infection is present. 3. Ciprofloxacin 500 mg p.o. q.12 hours. 4. Augmentin 875 mg p.o. q.12 hours. TIME SPENT: Time discharging this patient and discussing with the family about her medical condition, around 40 minutes. cc: Clemente Leyva MD MTDD
== END 2018-10-01 10:31 | disposition home or self-care (01) ==
LOC: ED 19:47 → INTOOBSV 19:48 → SUATTDRO 09-30 04:39 → EDIPHOLD 09-30 04:39 → 4N 09-30 15:51
PROVIDERS: ATTEND Internal Medicine
CPT/HCPCS: 71010; 71045; 74177; 80048; 80053; 81001; 83605; 83690; 84443; 85025; 86140; 87040; 87045; 87046; 87177; 87205; 87324; 87449; 88313; 89055; 96361; 96365; 96366; 96375; 99285; A9270; C9113; J1885; J2405; J2543; J7030; Q9967; S0164